=== PATIENT | male | born 1975 | race Caucasian/White ===

== ENCOUNTER 2017-04-16 01:21 | Emergency (ER) | payer OTHER ==
[2017-04-16 01:28] VITALS: BP 157/60; PULSE 122; RESP 16; TEMP 98.3; O2SAT 95
[2017-04-16] MEDS ORDERED: oxyCODONE/ACETAMINOPHEN 5 MG/325 MG TAB PO ONE (02:00)
[2017-04-16] MEDS ORDERED: ULTR50TA5 PO (02:40)
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
[2017-04-16] MEDS ORDERED: DIPHTH/TETANUS/ACEL PERTUSSIS (BOOSTER) 0.5 ML VIAL/PFS IM ONE (02:45)
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
[2017-04-16 03:17] VITALS: BP 132/74
== END 2017-04-16 03:18 | disposition home or self-care (01) ==
LOC: NEPC 01:21
DX: S40.812A Abrasion of left upper arm, initial encounter (principal); S70.312A Abrasion, left thigh, initial encounter; S30.811A Abrasion of abdominal wall, initial encounter; S80.02XA Contusion of left knee, initial encounter; V28.4XXA Motorcycle driver injured in noncollision transport accident in traffic accident, initial encounter; Z23 Encounter for immunization
CPT/HCPCS: 71010; 72170; 73564; 90471; 90715